=== PATIENT | female | born 1940 | race Caucasian/White ===

== ENCOUNTER → 2018-05-16 | Outpatient (CLI) | payer OTHER ==
[~2018-05-16] MED LIST: ASPIRIN81 M2 PO; DYAZIDE 37.5-21 EACH PO; EVISTA PO; FELODIPINE 5 MG5 M1 PO; FISH OIL 1,001000 M2 PO; IBUPROFEN 200200 M1 PO; IMDUR 60 MG TAB60 M1 PO; KEFLEX250 MG PO; LEVOTHYROXINE 0.1 MG PO; LISINOPRIL10 MG PO; NEXIUM40 MG PO; OSTEO BI-FLEX1 EAC1 PO; POTASSIUM20 PO; PRINIVIL20 M1 PO; REGLAN 5 MG TAB5 MG PO; SIMVASTATIN40 MG PO; ZANTAC 150MG T150 MG PO
== END ==
LOC: M.LAB 04:43
DX: Z01.812 Encounter for preprocedural laboratory examination (principal); I10 Essential (primary) hypertension; E78.00 Pure hypercholesterolemia, unspecified; K21.9 Gastro-esophageal reflux disease without esophagitis

== ENCOUNTER → 2018-08-01 | Outpatient (CLI) | payer OTHER | LOC: M.RAD 11:00 | DX: Z12.31 Encounter for screening mammogram for malignant neoplasm of breast (principal) ==

== ENCOUNTER → 2019-04-16 | Outpatient (CLI) | payer OTHER ==
--- NOTE | 2019-04-16 11:59 | 2DMMODE ---
[place] [address] 2 D/M-MODE ECHOCARDIOGRAM Name: HIGINIO MOYANE Room: [facility]#: [id number] Admission: 04/16/19 Attend Phys: Casey Soto, Discharge: Date of : 36 Date of Service: 04/16/19 1159 Report #: [id number] THIS REPORT FOR: //name// APPROVED REPORT Study performed: 04/16/2019 10:11:44 EXAM: Comprehensive 2D, Doppler, and color-flow Echocardiogram Patient Location: Out-Patient BSA: 1.59 HR: 74 bpm BP: 127/72 mmHg Other Information Study Quality: Good Indications Fatigue 2D Dimensions IVSd: 9.71 (7-11mm) LVOT Diam: 20.70 (18-24mm) LVDd: 44.13 mm PWd: 9.21 (7-11mm) Ascending Ao: 25.40 (22-36mm) LVDs: 23.24 (25-40mm) Aortic Root: 30.50 mm Volumes Left Atrial Volume (Systole) LA ESV Index: 14.80 mL/m2 Aortic Valve AoV Peak Reynaldo.: 1.69 m/s AO Peak Gr.: 11.46 mmHg LVOT Max P.89 mmHg AO Mean Gr.: 6.04 mmHg LVOT Mean P.82 mmHg LVOT Max V: 0.99 m/s AO V2 VTI: 33.41 cm LVOT Mean V: 0.61 m/s SUNNY (VTI): 2.12 cm2 LVOT V1 VTI: 21.09 cm AI Billings: 2.85 m/s2 AI PHT: 428.16 ms Mitral Valve E/A Ratio: 0.85 MV Decel. Time: 200.98 ms MV E Max Reynaldo.: 0.79 m/[place] [address] 2 D/M-MODE ECHOCARDIOGRAM Name: HIGINIO MOYA Room: [facility]#: [id number] Admission: 04/16/19 Attend Phys: Casey Soto, Discharge: Date of : 36 Date of Service: 04/16/19 1159 Report #: [id number] MV PHT: 58.28 ms MVA (PHT): 3.77 cm2 TDI E/Lateral E': 8.78 E/Medial E': 6.58 Medial E' Reynaldo.: 0.12 m/s Lateral E' Reynaldo.: 0.09 m/s Pulmonary Valve PV Peak Reynaldo.: 0.96 m/s PV Peak Gr.: 3.71 mmHg Tricuspid Valve RAP Estimate: 5.00 mmHg TR Peak Gr.: 28.77 mmHg RVSP: 33.77 mmHg PA Pressure: 33.77 mmHg Left Ventricle The left ventricle is normal size. There is normal LV segmental wall motion. There is normal left ventricular wall thickness. Left ventricular systolic function is normal. The left ventricular ejection fraction is within the normal range. LVEF is 60%. Grade I - abnormal relaxation pattern. Right Ventricle The right ventricle is normal size. The right ventricular systolic function is normal. Atria The left atrium size is normal. The right atrium size is normal. Aortic Valve Mild aortic valve sclerosis. Mild aortic regurgitation. There is no aortic valvular stenosis. Mitral Valve The mitral valve is normal in structure. Mild mitral regurgitation. No evidence of mitral valve stenosis. Tricuspid Valve The tricuspid valve is normal in structure. Mild tricuspid regurgitation. Pulmonic Valve The pulmonary valve is normal in structure. [place] [address] 2 D/M-MODE ECHOCARDIOGRAM Name: HIGINIO MOYA VAHID Room: [facility]#: [id number] Admission: 04/16/19 Attend Phys: Casey Soto, Discharge: Date of : 36 Date of Service: 04/16/19 1159 Report #: [id number] Great Vessels The aortic root is normal in size. IVC is normal in size and collapses >50% with inspiration. Pericardium There is no pericardial effusion. <Conclusion> The left ventricle is normal size. There is normal left ventricular wall thickness. Left ventricular systolic function is normal. The left ventricular ejection fraction is within the normal range. LVEF is 60%. Grade I - abnormal relaxation pattern. The right ventricle is normal size. The left atrium size is normal. Mild aortic valve sclerosis. Mild aortic regurgitation. There is no aortic valvular stenosis. The mitral valve is normal in structure. Mild mitral regurgitation. The tricuspid valve is normal in structure. Mild tricuspid regurgitation. IVC is normal in size and collapses >50% with inspiration. There is no pericardial effusion. There is normal LV segmental wall motion. <ELECTRONICALLY SIGNED> By: Saman Betancourt MD, FACC 04/16/19 1159 1159 1159 Saman Betancourt MD, FACC /INF
== END ==
LOC: M.CRD 10:00
DX: I08.8 Other rheumatic multiple valve diseases (principal); I10 Essential (primary) hypertension; E11.9 Type 2 diabetes mellitus without complications; E78.5 Hyperlipidemia, unspecified; R53.83 Other fatigue; R60.9 Edema, unspecified

== ENCOUNTER → 2019-04-17 | Outpatient (CLI) | payer OTHER ==
--- NOTE | 2019-04-17 17:02 | CARDNUC ---
[place] [address] CARDIAC NUCLEAR IMAGING REPORT Name: HIGINIO MOYA Room: [facility]#: [id number] Admission: 04/17/19 Attend Phys: Casey Soto, Discharge: Date of : 36 Date of Service: 04/17/19 1702 Report #: [id number] THIS REPORT FOR: //name// APPROVED REPORT Study performed: 04/17/2019 14:41:42 Exam: Nuclear Stress Test Indication: Fatigue Patient Location: Out-Patient Stress Tech: Lauren Sarkar Stress Nurse: Yashira Mcconnell RN Ht: 4 ft 10 in Wt: 150 lbs BSA: 1.61 m2 BMI: 31.34 Medical History Medical History: hyperlipidemia, hypertension, diabetes Medications: imdur, felodipine Allergies: codeine, penidillin Cardiac Risk Factors: age, hyperlipidemia, hypertension, diabetes, family hx Previous Cardiac Procedures: none Exercise History: Physically active Meds Held (24 hrs): imdur Stress Test Details Stress Test: Exercise stress converted to pharmacologic stress due to failure to obtain a diagnostic stress test. Reason for pharmacologic stress test: physical limitation. HR Resting HR: 88 bpm Max Heart Rate (APMHR): 139 bpm Max HR Achieved: 128 bpm Target HR (85% APMHR): 118 bpm % of APMHR: 92 Recovery HR: 108 bpm HR response to stress: Normal HR response to stress BP Resting BP: 128/71 mmHg Max BP: 219/57 mmHg BP response to stress: Abnormal hypertensive response [place] [address] CARDIAC NUCLEAR IMAGING REPORT Name: HIGINIO MOYA Room: [facility]#: [id number] Admission: 04/17/19 Attend Phys: Casey Soto, Discharge: Date of : 36 Date of Service: 04/17/19 1702 Report #: [id number] Resting ECG: Sinus Rhythm, Anterior ME pattern Stress ECG: Sinus Rhythm, Anterior ME pattern ST Change: None Arrhythmia: VPC Recovery ECG: Sinus Rhythm Recovery ST Change: None Recovery Arrhythmia: None Clinical Reason for Termination: Completed protocol Stress Symptoms: None Exercise duration: 0 min sec Exercise capacity: 1 METs Nurse Comments pt to weak to complete treadmill safely, changed to aryan Stress ECG Conclusion Normal hemodynamic response to pharmacologic stress. Clinical: Non-ischemic ECG: Non-ischemic. NM EXAM: Myocardial Perfusion REST/STRESS Imaging Protocol: Rest Tc-99m/Stress Tc-99m 1 day Resting Data Rest SPECT myocardial perfusion imaging was performed in supine position 30 minutes following the intravenous injection of 10.9 mCi of Tc-99m Sestamibi. Time of rest injection: 13:05 The images were gated to evaluate regional wall motion and calculate left ventricular ejection fraction. Administration Route: IV Administration Site: Right AC Pharmacologic Stress Pharmacologic stress test was performed by injecting Regadenoson 0.4 mg IV push followed by the intravenous injection of 35.3 mCi of Tc-99m Sestamibi. Time of stress injection: 14:45 Administration Route: IV Administration Site: Right AC Heart Rate at time of stress injection: 128 bpm. Gated Stress SPECT was performed 40 minutes [place] [address] CARDIAC NUCLEAR IMAGING REPORT Name: HIGINIO MOYA Room: [facility]#: [id number] Admission: 04/17/19 Attend Phys: Casey Soto, Discharge: Date of : 36 Date of Service: 04/17/19 1702 Report #: [id number] The images were gated to evaluate regional wall motion and calculate left ventricular ejection fraction. Prone imaging was performed. Study Quality Study: Good Artifact: Mild Breast artifact Lung Uptake: Normal Study Data At rest, the left ventricular ejection fraction was 80%.. Post stress, the left ventricular ejection was 83%.. TID = 0.89. Perfusion No evidence of stress induced ischemia or prior myocardial infarction. Normal left ventricular size and function with no regional wall motion abnormalities. Normal left ventricular perfusion. Images were reviewed using [employer]. Wall Motion Normal left ventricular wall motion. Nuclear Conclusion ECG Findings: negative for ischemia Clinical Findings: negative for ischemia Nuclear Findings: negative for ischemia Exercise Capacity: not assessed Normal study. No scintigraphic evidence for myocardial ischemia or scar. <Conclusion> Normal hemodynamic response to pharmacologic stress. Clinical: Non-ischemic ECG: Non-ischemic. <ELECTRONICALLY SIGNED> By: Dayna Martin MD, [facility] 04/17/191701 01 01 Dayna Martin MD, FAC /INF
== END ==
LOC: M.CRD 04-11 09:04 → M.NUC 12:46 → M.CRD 04-28 09:00 → M.NUC 04-28 10:00
DX: R53.83 Other fatigue (principal); E78.5 Hyperlipidemia, unspecified; I10 Essential (primary) hypertension; E11.9 Type 2 diabetes mellitus without complications; R60.9 Edema, unspecified; Z88.0 Allergy status to penicillin; Z88.5 Allergy status to narcotic agent

== ENCOUNTER → 2019-08-01 | Outpatient (CLI) | payer OTHER | LOC: M.RAD 13:22 | DX: Z12.31 Encounter for screening mammogram for malignant neoplasm of breast (principal) ==

== ENCOUNTER → 2020-03-31 | Outpatient (CLI) | payer OTHER | LOC: M.RAD 16:29 | PROVIDERS: ATTEND Internal Medicine | DX: J98.4 Other disorders of lung (principal); J84.10 Pulmonary fibrosis, unspecified; K44.9 Diaphragmatic hernia without obstruction or gangrene ==

== ENCOUNTER → 2020-08-10 | Outpatient (CLI) | payer OTHER | LOC: M.RAD 08-03 13:00 | PROVIDERS: ATTEND Internal Medicine | DX: Z12.39 Encounter for other screening for malignant neoplasm of breast (principal); R92.2 Inconclusive mammogram ==

== ENCOUNTER → 2021-01-25 | Outpatient (CLI) | payer OTHER | LOC: M.RAD 15:53 | PROVIDERS: ATTEND Internal Medicine | DX: R06.02 Shortness of breath (principal) ==

== ENCOUNTER → 2021-03-09 | Outpatient (CLI) | payer OTHER ==
[~2021-03-09] MED LIST changes: +ADVIL200 M1 PO; +D3-200050 MCG PO; +DILTIAZEM ER180 M2 PO; +LASIX 40 MG TAB40 MG PO; +MECLIZINE HCL25 M1 PO; +METAMUCIL PACK3.4 GM PO; +PEPCID40 MG PO; +PROBIOTIC1 EAC7 PO
--- NOTE | 2021-03-09 17:29 | CARDNUC ---
[place] [address] CARDIAC NUCLEAR IMAGING REPORT Name: HIGINIO JIMÉNEZ Room: [facility]#: [id number] Admission: 03/09/21 Attend Phys: Kristin [place] Discharge: Date of : 36 Date of Service: 03/09/21 1728 Report #: [id number] THIS REPORT FOR: cc: Brenda Jiménez MD, Lin W. MD Liston, Michael J. MD [facility] ~ APPROVED REPORT Imaging Protocol: Stress Tc-99m/Rest Tc-99m 1 day Study performed: 03/09/2021 12:45:00 Indication: Chest pain, Dyspnea, Edema. Patient Location: Out-Patient Stress Nurse: Muna Jovel RN Ht: 4 ft 10 in Wt: 150 lbs BSA: 1.61 m2 BMI: 31.34 Medical History Medical History: Chest pain, dyspnea, ABN EKG, LE Edema, GERD, hypothyroidism, K+ Deficiency, obesity. Medications: ASA 81 Mg, Lasix, Imdur, Diltiazem. Allergies: Codeine, PNC, Sulfa ABX. Cardiac Risk Factors: Age, FHX of CAD, HTN, Hyperlipidemia, SOB, obesity. Previous Cardiac Procedures: None Pretest Chest Pain Characteristics: No chest pain Exercise History: Sedentary Physical Disabilities: dyspnea, LE edema, slow/unstable gait. Meds Held (24 hrs): Imdur, Lasix. Stress Test Details Stress Test: Pharmacologic stress testing performed using 0.4 mg of regadenoson per 5 mL given IV over 10 seconds. Reason for pharmacologic stress test: dyspnea, LE edema, slow/unstable gait.. HR Max Heart Rate (APMHR): 137 bpm Resting HR: 72 bpm Target HR (85% APMHR): 116 bpm Max HR Achieved: 99 bpm % of APMHR: 72 Recovery HR: [place] [address] CARDIAC NUCLEAR IMAGING REPORT Name: HIGINIO JIMÉNEZ Room: [facility]#: [id number] Admission: 03/09/21 Attend Phys: Kristin Boston Discharge: Date of : 36 Date of Service: 03/09/21 1728 Report #: [id number] Resting BP: 152/89 mmHg Max BP: 199/81 mmHg Recovery BP: 164/85 mmHg ECG Resting ECG: Sinus Rhythm Stress ECG: Sinus Rhythm ST Change: None Arrhythmia: None Recovery ECG: Sinus Rhythm Recovery ST Change: None Recovery Arrhythmia: None Clinical Reason for Termination: Completed protocol Stress Symptoms: Dyspnea, Nausea, Lightheaded. Exercise duration: 00 min 00 sec Exercise capacity: 1.00 METs The patient tolerated Lexiscan infusion without significant cardiac symptoms. Nurse Comments An 81 year old female tolerated a sitting lexiscan. Patient was stable and stated she felt good when escorted to [facility] for imaging. Stress ECG Conclusion The baseline twelve-lead EKG shows sinus rhythm without significant ST segment abnormality. EKGs obtained during and post Lexiscan infusion show sinus rhythm with no significant ST segment changes when compared to baseline. There were no stress-induced arrhythmias. Study Quality Study: Excellent Artifact: No artifact Study Data At rest, the left ventricular ejection fraction was 83%.. Post stress, the left ventricular ejection was 77%.. TID = 1.20. Perfusion Perfusion images obtained at rest and post Lexiscan stress show uniform uptake of the radioisotope throughout the myocardium. There were no defects to [place] [address] CARDIAC NUCLEAR IMAGING REPORT Name: HIGINIO JIMÉNEZ Room: [facility]#: [id number] Admission: 03/09/21 Attend Phys: Kristin Boston Discharge: Date of : 36 Date of Service: 03/09/21 1728 Report #: [id number] Wall Motion Normal left ventricular wall motion. Nuclear Conclusion ECG Findings: negative for ischemia Clinical Findings: negative for ischemia Nuclear Findings: negative for ischemia Exercise Capacity: not assessed Left Ventricular Function: normal Risk Study: low Myocardial perfusion images show no defect to suggest infarct or ischemia. Left ventricular systolic function is normal on gated studies. This is a low risk study. <Conclusion> The baseline twelve-lead EKG shows sinus rhythm without significant ST segment abnormality. EKGs obtained during and post Lexiscan infusion show sinus rhythm with no significant ST segment changes when compared to baseline. There were no stress-induced arrhythmias. <ELECTRONICALLY SIGNED> By: Franko Haddad MD, [facility] 03/09/21 1728 1728 1728 Franko Haddad MD, FACC /INF
== END ==
LOC: M.NUC 03-02 09:52
PROVIDERS: ATTEND Internal Medicine
DX: R94.31 Abnormal electrocardiogram [ECG] [EKG] (principal); R06.00 Dyspnea, unspecified

== ENCOUNTER → 2021-06-17 | Outpatient (CLI) | payer OTHER | LOC: M.LAB 09:55 | PROVIDERS: ATTEND Internal Medicine | DX: I10 Essential (primary) hypertension (principal) ==

== ENCOUNTER → 2021-07-11 | Outpatient (CLI) | payer OTHER | LOC: M.NUC 09:30 | PROVIDERS: ATTEND Internal Medicine | DX: R10.13 Epigastric pain (principal) ==

== ENCOUNTER → 2021-08-10 | Outpatient (CLI) | payer OTHER | LOC: M.RAD 13:00 | PROVIDERS: ATTEND Internal Medicine | DX: Z12.31 Encounter for screening mammogram for malignant neoplasm of breast (principal) ==

== ENCOUNTER → 2021-08-16 | Outpatient (CLI) | payer MEDICARE | LOC: M.RAD 08-11 11:28 | PROVIDERS: ATTEND Internal Medicine | DX: R92.2 Inconclusive mammogram (principal) ==